=== PATIENT | female | born 1965 | race Caucasian/White ===

== ENCOUNTER 2017-01-28 18:21 | Emergency (ER) | payer MEDICARE, OTHER ==
--- NOTE | ~2017-01-28 | CR72 ---
[facility] A Service of [facility] & [facility] RADIOLOGY TEXT RESULTS PATIENT: WALDO MESA LOCATION: [facility] : 61 UNIT #: [id number] AGE: [address]: Eder Medellin MD SEX: F ORDER DR: [id number] [facility] [address] [place], [place] [address] [id number] MR#: [id number] Acc #: [id number] NAME: WALDO MESA : 1965 SEX: F STUDY DATE/TIME: 01/28/2017 18:28 UNIT: [facility] ROOM: STUDY DESCRIPTION: CR Chest Single View Portable Attending Physician: Eder Medellin M.D. Ordering Physician: Ed Efren Acuna M.D. Primary Care Physician: Sena Sarmiento M.D. MEDICAL IMAGING REPORT This report is preliminary unless electronic signature is present EXAM Portable chest, 01/28/2017 HISTORY Shortness of air for 2 days. FINDINGS Mild hyperinflation of both lungs. Cardiac size and pulmonary vascularity are within normal limits. No infiltrates or effusions are identified. Minimal linear atelectasis or scarring in the left base. IMPRESSION No acute findings. Dictated by... Sotero Hdz M.D. THIS IS AN ELECTRONICALLY VERIFIED REPORT Sotero Hdz M.D. at 01/30/2017 12:25 PM DFPreethi/tommy TD: 01/30/2017 00:58 JOB #: [id number] MEDICAL IMAGING REPORT COPY
--- NOTE | ~2017-01-28 | EKG ---
PATIENT: WALDO MESA UNIT #: [id number] Ventricular Rate: 89 BPM Atrial Rate: 89 BPM P-R Interval: 136 ms QRS Duration: 72 ms Q-T Interval: 352 ms QTC Calculation(Bezet): 428 ms P [place]: 78 degrees Calculated R [place]: 73 degrees Calculated T [place]: 62 degrees Diagnosis Line: Normal sinus rhythm Diagnosis Line: Normal ECG Diagnosis Line: When compared with ECG of 07-OCT-2016 15:20, Diagnosis Line: No significant change was found Diagnosis Line: Confirmed by LINDA VARGAS MD ([id number]) on 01/30/2017 Diagnosis Line: 7:30:14 AM INTERPRETING MD: SAM BARRETT
[~2017-01-28 18:21] MED LIST: ACETAMINOPHEN PO; ADVAIR 250-501 EAC1 IH; ADVAIR 250-501 EACH IH; ADVAIR 2501 DISK W/D PO; ADVAIR 500-501 EACH IH; ADVAIR 5001 DISK W/D PO; ADVAIR INH; ALBUTEROL MININEB NEB; ALBUTEROL17 GM INH; ALBUTEROL2.5 MG/0.5 IH; ALBUTEROL2.5 MG/0.5 NEB; ALBUTEROL20 ml INH; ALPRAZOLAM PO; ALPRAZOLAM0.25 MG PO; AMOXICILLIN500 M1 PO; ASPIRIN81 M1 PO; ATIVAN PO; ATROVENT HFA12.9 GM INH; AUGMENTIN PO; AURALGAN EAR DR14 ML OT; AZITHROMYCIN250 MG PO; CEFTIN PO; CELEXA PO; CIPRO PO; CIPRO250 MG PO; CLARITIN10 MG PO; COMBIVENT INH14.7 G1 IH; COMBIVENT INH14.7 GM INH; COMBIVENT MININEB INH; COMBIVENT MININEB NEB; COMBIVENT U/D3 M2 INH; COMBIVENT14.7 GM; COMBIVENT14.7 GM IH; COMBIVENT14.7 GM INH; DIFLUCAN200 MG PO; DILTIAZEM HCL30 MG PO; DOXYCYCLINE PO; DUONEB 2.5-0.5 M3 ML INH; DUONEB 2.5-0.5 M3 ML NEB; FAMOTIDINE PO; FERRO-TIME325 MG PO; FLEXERIL PO; FOLIC ACID PO; GLUCOPHAGE500 M1 PO; GLUCOPHAGE500 MG PO; HYDROCHLOROTHIA25 MG PO; HYDROCODON-ACE1 EAC1 PO; HYDROCODON-ACET15 M1 PO; HYDROCODONE-APA1 T59 PO; IBUPROFEN PO; KCL; KCL PO; LAMISIL PO; LASIX PO; LASIX20 MG PO; LEVAQUIN PO; LISINOPRIL10 MG PO; LISINOPRIL2.5 MG PO; LORTAB 7.5-5001 TAB PO; LORTAB 7.51 TAB PO; MACROBID100 MG PO; METFORMIN HCL500 M1 PO; METFORMIN PO; MUCINEX DM1 TAB.SR . PO; NAPROXEN PO; NEBULIZER INH; NORCO 5/325 TAB1 TAB PO; OMEPRAZOLE20 M1 PO; OMEPRAZOLE20 M2 PO; OMEPRAZOLE40 MG PO; OXYGEN; PREDNISOLO15 MG/5 ML PO; PREDNISOLONE5 MG PO; PREDNISONE PO; PREDNISONE10 MG PO; PREDNISONE10 MG/DOSE PO; PREDNISONE5 MG; PRILOSEC PO; PRILOSEC20 M1 PO; PRILOSEC20 MG PO; PROAIR HFA8.5 GM; PROAIR HFA8.5 GM IH; PROAIR HFA8.5 GM INH; PROVENTIL INH0.5 ML HHN; REGLAN10 MG PO; SINGULAIR PO; SYMBICORT INH; THEO-24200 MG PO; THEO-DUR200 MG DOB; THEO-DUR200 MG PO; THEO-DUR300 MG PO; THEOPHYLLIN PO; TYLENOL325 M1 PO; ULTRAM PO; VIBRAMYCIN100 M1 PO; VICODIN 5/500 T1 TAB PO; VOLTAREN75 MG PO; XANAX1 MG PO; ZESTRIL2.5 M1 PO; ZITHROMAX PO; ZITHROMAX500 MG PO; ZYRTEC PO; ZYRTEC10 M2 PO; [UNRECOGNIZED DRUG - SUPPLY] MC
[2017-01-28 18:23] LABS: BASOPHIL% 0.2 % (0-2.5); HEMATOCRIT 30.8 % (35.0-45.0); HEMOGLOBIN 9.6 gm/dL (12.0-16.0); LYMPHOCYTE# 0.7 X10e3 (1.0-3.5); LYMPHOCYTE% 5.3 % (17.0-45.0); MEAN CELL VOLUME 76.2 FL (83-96); MEAN CORPUSCULAR HEMOGLOBIN 23.7 PG (28-34); MEAN PLATELET VOLUME 7.8 FL (6.5-11.5); MONOCYTE# 0.6 X10e3 (0-1.0); MONOCYTE% 4.8 % (3.0-12.0); NEUTROPHIL% 89.7 % (40-75); PLATELET COUNT 267 X10e3 (140-420); RED BLOOD COUNT 4.05 X10e (3.90-5.30); RED CELL DISTRIBUTION WIDTH 16.1 % (11.0-15.5); WHITE BLOOD COUNT 13.4 X10e3 (4.0-10.5)
[2017-01-28 18:24] LABS: DIFF IND NO
[2017-01-28 18:27] LABS: POC - CKMB 1.5 ng/mL (0.0-7.9); POC - TROPONIN <0.05 ng/mL (<=0.05)
[2017-01-28 19:00] LABS: ALBUMIN SERUM 3.7 g/dL (3.5-5.0); ALKALINE PHOSPHATASE 60 U/L (32-92); ALT (SGPT) 16 U/L (10-40); AST (SGOT) 17 U/L (10-42); BILIRUBIN, DIRECT 0.1 mg/dL (0.0-0.2); BILIRUBIN,INDIRECT 0.4 mg/dL (0.0-0.9); BILIRUBIN,TOTAL 0.5 mg/dL (0.2-2.0); BLOOD UREA NITROGEN 18 mg/dL (9-23); CALCIUM SERUM 8.9 mg/dL (8.4-10.2); CARBON DIOXIDE 35 mmol/L (22-31); CHLORIDE 96 mmol/L (100-111); CREATININE SERUM 0.9 mg/dL (0.6-1.4); GLOM FILT RATE Estimated ABOVE60 mL/min (>60); GLUCOSE FASTING 190 mg/dL (70-110); POTASSIUM 3.8 mmol/L (3.5-5.1); SODIUM 141 mmol/L (135-145)
[2017-01-28 20:09] LABS: POC - CKMB 1.1 ng/mL (0.0-7.9); POC - TROPONIN <0.05 ng/mL (<=0.05)
== END 2017-01-28 20:15 | disposition home or self-care (01) ==
LOC: CED 18:21
PROVIDERS: Emergency Medicine
DX: J44.1 Chronic obstructive pulmonary disease with (acute) exacerbation (principal); I10 Essential (primary) hypertension; K21.9 Gastro-esophageal reflux disease without esophagitis; Z90.49 Acquired absence of other specified parts of digestive tract; Z88.2 Allergy status to sulfonamides
CPT/HCPCS: 36415; 71010; 80048; 80076; 82553; 83880; 84484; 85025; 93005; 94640; 96374; 99284; J2930

== ENCOUNTER 2017-04-11 15:17 | Inpatient (IN) | payer MEDICARE, OTHER ==
--- NOTE | ~2017-04-11 | HP ---
Unit #: [id number] #: [id number] Patient: WALDO MESA [id number] [address] [place], [place] [address] [id number] I MR#: [id number] NAME: WALDO MESA. ROOM: [facility] Age: 51 Sex: F Admission Date: 04/11/2017 : 1965 Attending Physician: Nilda Sheffield M.D. Primary Care Physician: Sena Sarmiento M.D. HISTORY AND PHYSICAL HISTORY OF PRESENT ILLNESS This is a young lady with a history of chronic obstructive pulmonary disease, chronic anemia, acute blood loss anemia, obesity, diabetes, who presents for worsening shortness of air for approximately two or three days. She denies any sort of sick contacts. She thinks maybe she has been going in and out of cold air conditions to warm rooms and, therefore, that is why she is significantly more sick. The patient denies any sort of fevers or chills, is able to expectorate and cough fairly easily but not (1) scant, clear, nothing is coming up. The patient stated that she came into Dr. Das's office for a shot and oral antibiotics; however, this did not improve. Therefore, this is failure of outpatient treatment. PAST MEDICAL HISTORY COPD, obesity, diabetes, obstructive sleep apnea, history of cervical cancer as well as home oxygen. PAST SURGICAL HISTORY Cervical cancer removal, section and cholecystectomy. SOCIAL HISTORY The patient used to smoke quite heavily, has quit about five years ago. No history of alcohol. FAMILY HISTORY Negative for cancers. Negative for heart disease; however, her father had a history of bronchial problems. REVIEW OF SYSTEMS Significant for occasional headache, worsening shortness of breath, paroxysmal nocturnal dyspnea, chest tightness as well as wheezing. PHYSICAL EXAMINATION VITAL SIGNS: T-current 99.3. Pulse 116. Respiratory rate 21. Blood pressure 119/71. Ins and outs 1,370 in x2 (2) out. HEENT: Extraocular movements are intact. CHEST: Clear to auscultation bilaterally. CARDIOVASCULAR: Regular rate. No gallop. ABDOMEN: Soft, nontender, nondistended. EXTREMITIES: No evidence of edema. The pulses bilaterally are intact. DIAGNOSTIC STUDIES LABORATORY: Glucose 298 and 211. Basic metabolic significant of 4, BUN and creatinine 21 and 2.7, bicarb 22; otherwise, Chem-7 is within normal Unit #: [id number] #: [id number] Patient: WALDO MESA. IMAGING: Chest x-ray, single view, shows mild cardiac enlargement. No evidence of active disease. ASSESSMENT AND PLAN COPD exacerbation, acute on chronic respiratory failure, failure of outpatient treatment. We are going to treat the patient with steroids, antibiotics and try to get a sputum culture to look for any resistive organisms. Tomorrow, if the patient is less tight, we are going to try and see if we can decrease the steroids. Dictated by Jorgito Norman TD: 04/13/2017 06:05 JOB #: [id number] HISTORY AND PHYSICAL Page 1 of 1 X Gera Sheffield MD X HISTORY AND PHYSICAL
--- NOTE | ~2017-04-11 | CR72 ---
[facility] A Service of [facility] & [facility] RADIOLOGY TEXT RESULTS PATIENT: WALDO MESA LOCATION: [place] [id number] : [birth year] UNIT #: [id number] AGE: [address]: Gera Sheffield MD SEX: F ORDER DR: [id number] [facility] [address] [place], [place] [address] [id number] I MR#: [id number] Acc #: [id number] NAME: WALDO MESA : 1965 SEX: F STUDY DATE/TIME: 04/11/2017 18:01 UNIT: [facility] ROOM: [facility] STUDY DESCRIPTION: CR Chest Single View Portable Attending Physician: Nilda Sheffield M.D. Ordering Physician: Jose Sanabria M.D. Primary Care Physician: Sena Sarmiento M.D. MEDICAL IMAGING REPORT This report is preliminary unless electronic signature is present EXAM Portable chest, 04/11/2017 HISTORY Shortness of breath and productive cough with chest congestion beginning today. Benign essential hypertension. FINDINGS The heart is enlarged but stable compared with 01/28/2017. The lungs are clear. There are no pleural effusions. IMPRESSION Mild cardiac enlargement. No active pulmonary disease. Dictated by... Woody Calvo M.D. THIS IS AN ELECTRONICALLY VERIFIED REPORT Woody Calvo M.D. at 04/13/2017 8:22 AM KRT/psc TD: 04/12/2017 02:04 JOB #: [id number] MEDICAL IMAGING REPORT Page 1 of 1 COPY
--- NOTE | ~2017-04-11 | DS ---
Unit #: [id number] #: [id number] Patient: WALDO CARROLL [id number] [address] [place], [place] [address] [id number] I MR#: [id number] NAME: WALDO CARROLL ROOM: [facility] Age: 51 Sex: F Admission Date: 04/11/2017 : 1965 Discharge Date: 04/16/2017 Attending Physician: Nilda Sheffield M.D. Primary Care Physician: Sena Sarmiento M.D. DISCHARGE SUMMARY FINAL DIAGNOSES 1. Acute exacerbation of chronic obstructive pulmonary disease. 2. Acute bronchitis. 3. Anemia. CONSULTANTS None. Ms. Carroll is a 51-year-old female with a history of end stage COPD who presents with increasing shortness of air for three days. On admission, she had no evidence of infiltrate on her chest x-ray. She was started on IV steroids and Levaquin and Solu-Medrol was tapered down over time. She has anemia and has been worked up with colonoscopy by Dr. Misha Stephenson. She has improved considerably and is ready for discharge. It is notable that since she has already had a colonoscopy, I did not further address the anemia. She will be sent home on the following medicines: 1. Advair 250/50, one puff b.i.d. 2. Combivent Respimat p.r.n. 3. Duo-Nebs p.r.n. 4. Prednisone 40 mg p.o. daily, decreasing by 10 mg every three days. 5. Xanax 0.25 mg p.o. b.i.d. 6. Cefuroxime 500 mg p.o. b.i.d. 7. Lisinopril 10 mg p.o. daily. 8. Omeprazole 20 mg p.o. daily. 9. Hydrocodone, which is Lorcet Plus, 7.5/325 q.8 p.r.n. but I did not write that prescription as that is a home medicine. 10. Theophylline 300 mg p.o. daily. DIET Regular. ACTIVITY As tolerated. FOLLOWUP She should follow up with me in about two weeks. Floral is a bit guarded as she does have severe COPD and we have already referred her to pulmonary transplant and she was not accepted yet. Unit #: [id number] #: [id number] Patient: WALDO CARROLL Preethi Dictated by... Jorgito Chavez/lemuel TD: 04/18/2017 08:47 JOB #: [id number] DISCHARGE SUMMARY Page 1 of 1 X Magan Das MD X DISCHARGE SUMMARY
--- NOTE | ~2017-04-11 | EKG ---
PATIENT: WALDO MESA UNIT #: [id number] Ventricular Rate: 96 BPM Atrial Rate: 96 BPM P-R Interval: 138 ms QRS Duration: 72 ms Q-T Interval: 346 ms QTC Calculation(Bezet): 437 ms P [place]: 78 degrees Calculated R [place]: 68 degrees Calculated T [place]: 52 degrees Diagnosis Line: Normal sinus rhythm Diagnosis Line: Normal ECG Diagnosis Line: When compared with ECG of 28-JAN-2017 18:22, Diagnosis Line: No significant change was found Diagnosis Line: Confirmed by RIDGE EPPERSON MD ([id number]) on Diagnosis Line: 04/15/2017 9:39:19 AM INTERPRETING STEFF SYKES
[2017-04-11 17:18] LABS: ALBUMIN SERUM 3.6 g/dL (3.5-5.0); BILIRUBIN, DIRECT 0.1 mg/dL (0.0-0.2); BILIRUBIN,INDIRECT 0.2 mg/dL (0.0-0.9); BILIRUBIN,TOTAL 0.3 mg/dL (0.2-2.0); BUN/CREATININE RATIO 25.71; CREATININE SERUM 0.7 mg/dL (0.6-1.4); GLOM FILT RATE Estimated 98.9 mL/min (>60); POTASSIUM 3.6 mmol/L (3.5-5.1); PROTEIN TOTAL SERUM 6.5 g/dL (6.0-8.3)
[2017-04-11 17:21] LABS: BASOPHIL% 0.2 % (0-2.5); HEMATOCRIT 32.3 % (35.0-45.0); LYMPHOCYTE# 0.8 X10e3 (1.0-3.5); LYMPHOCYTE% 5.5 % (17.0-45.0); MEAN CELL VOLUME 77.4 FL (83-96); MEAN CORPUSCULAR HEMOGLOBIN 23.9 PG (28-34); MEAN CORPUSCULAR HGB CONC 30.9 g/dL (30-36); MEAN PLATELET VOLUME 7.9 FL (6.5-11.5); MONOCYTE# 0.9 X10e3 (0-1.0); MONOCYTE% 5.8 % (3.0-12.0); NEUTROPHIL# 13.5 X10e3 (1.5-7.1); NEUTROPHIL% 88.5 % (40-75); PLATELET COUNT 235 X10e3 (140-420); RED BLOOD COUNT 4.17 X10e (3.90-5.30); RED CELL DISTRIBUTION WIDTH 17.9 % (11.0-15.5); WHITE BLOOD COUNT 15.2 X10e3 (4.0-10.5)
[2017-04-11 17:23] LABS: DIFF IND YES
[2017-04-11 18:16] LABS: ANISOCYTOSIS MOD; PLATELET ESTIMATE NORMAL (NORMAL); POIKILOCYTOSIS SL
[2017-04-11 18:17] LABS: MICROCYTOSIS SL
[2017-04-11 18:54] LABS: POC - CKMB <1.0 ng/mL (0.0-7.9); POC - TROPONIN <0.05 ng/mL (<=0.05)
[2017-04-11 20:48] LABS: POC - CKMB <1.0 ng/mL (0.0-7.9); POC - TROPONIN <0.05 ng/mL (<=0.05)
[2017-04-12] MEDS ORDERED: ADVAIR 250-501 EACH INH (00:56)
[2017-04-12] MEDS ORDERED: COMBIVENT RESPIM4 GM INH (00:57)
[2017-04-12] MEDS ORDERED: THEO-DUR300 MG PO (00:58)
[2017-04-12] MEDS ORDERED: LORCET PLUS 7.1 EACH PO (01:09)
[2017-04-12 05:28] LABS: BASOPHIL% 0.1 % (0-2.5); HEMOGLOBIN 9.4 gm/dL (12.0-16.0); LYMPHOCYTE# 0.3 X10e3 (1.0-3.5); LYMPHOCYTE% 3.1 % (17.0-45.0); MEAN CELL VOLUME 77.4 FL (83-96); MEAN CORPUSCULAR HEMOGLOBIN 24.2 PG (28-34); MEAN CORPUSCULAR HGB CONC 31.3 g/dL (30-36); MONOCYTE# 0.1 X10e3 (0-1.0); MONOCYTE% 1.1 % (3.0-12.0); NEUTROPHIL# 10.1 X10e3 (1.5-7.1); NEUTROPHIL% 95.7 % (40-75); PLATELET COUNT 197 X10e3 (140-420); RED BLOOD COUNT 3.87 X10e (3.90-5.30); RED CELL DISTRIBUTION WIDTH 18.1 % (11.0-15.5); WHITE BLOOD COUNT 10.5 X10e3 (4.0-10.5)
[2017-04-12 05:45] LABS: DIFF IND NO
[2017-04-12 06:56] LABS: CALCIUM SERUM 8.5 mg/dL (8.4-10.2); CREATININE SERUM 0.7 mg/dL (0.6-1.4); GLOM FILT RATE Estimated 98.9 mL/min (>60)
[2017-04-13 05:44] LABS: BASOPHIL% 0.3 % (0-2.5); HEMATOCRIT 29.3 % (35.0-45.0); HEMOGLOBIN 9.2 gm/dL (12.0-16.0); LYMPHOCYTE# 0.3 X10e3 (1.0-3.5); LYMPHOCYTE% 3.4 % (17.0-45.0); MEAN CELL VOLUME 76.9 FL (83-96); MEAN CORPUSCULAR HEMOGLOBIN 24.1 PG (28-34); MEAN CORPUSCULAR HGB CONC 31.3 g/dL (30-36); MONOCYTE# 0.4 X10e3 (0-1.0); MONOCYTE% 3.6 % (3.0-12.0); NEUTROPHIL% 92.7 % (40-75); PLATELET COUNT 187 X10e3 (140-420); RED BLOOD COUNT 3.81 X10e (3.90-5.30); RED CELL DISTRIBUTION WIDTH 17.9 % (11.0-15.5); WHITE BLOOD COUNT 9.8 X10e3 (4.0-10.5)
[2017-04-13 05:46] LABS: DIFF IND NO
[2017-04-13 06:35] LABS: PROCALCITONIN <0.05 NG/ML
[2017-04-13 06:51] LABS: ALBUMIN SERUM 3.1 g/dL (3.5-5.0); ALKALINE PHOSPHATASE 44 U/L (32-92); ALT (SGPT) 20 U/L (10-40); AST (SGOT) 14 U/L (10-42); BILIRUBIN,TOTAL 0.2 mg/dL (0.2-2.0); BLOOD UREA NITROGEN 26 mg/dL (9-23); BUN/CREATININE RATIO 37.14; CALCIUM SERUM 8.7 mg/dL (8.4-10.2); CARBON DIOXIDE 37 mmol/L (22-31); CHLORIDE 97 mmol/L (100-111); CREATININE SERUM 0.7 mg/dL (0.6-1.4); GLOM FILT RATE Estimated 98.9 mL/min (>60); GLUCOSE FASTING 221 mg/dL (70-110); PROTEIN TOTAL SERUM 5.7 g/dL (6.0-8.3); SODIUM 140 mmol/L (135-145)
[2017-04-14 06:24] LABS: HEMATOCRIT 30.3 % (35.0-45.0); HEMOGLOBIN 9.5 gm/dL (12.0-16.0); MEAN CELL VOLUME 76.4 FL (83-96); MEAN CORPUSCULAR HEMOGLOBIN 23.9 PG (28-34); MEAN CORPUSCULAR HGB CONC 31.3 g/dL (30-36); MEAN PLATELET VOLUME 8.2 FL (6.5-11.5); RED BLOOD COUNT 3.96 X10e (3.90-5.30); RED CELL DISTRIBUTION WIDTH 18.1 % (11.0-15.5); WHITE BLOOD COUNT 11.1 X10e3 (4.0-10.5)
[2017-04-14 07:48] LABS: CALCIUM SERUM 8.9 mg/dL (8.4-10.2); CREATININE SERUM 0.8 mg/dL (0.6-1.4); GLOM FILT RATE Estimated 84.2 mL/min (>60); MAGNESIUM 1.9 mg/dL (1.6-3.0); PHOSPHOROUS 3.3 mg/dL (2.5-4.6); POTASSIUM 4.3 mmol/L (3.5-5.1)
[2017-04-15 05:35] LABS: HEMATOCRIT 31.4 % (35.0-45.0); HEMOGLOBIN 9.8 gm/dL (12.0-16.0); MEAN CELL VOLUME 77.1 FL (83-96); MEAN CORPUSCULAR HGB CONC 31.2 g/dL (30-36); MEAN PLATELET VOLUME 8.3 FL (6.5-11.5); RED BLOOD COUNT 4.08 X10e (3.90-5.30); RED CELL DISTRIBUTION WIDTH 17.9 % (11.0-15.5); WHITE BLOOD COUNT 10.6 X10e3 (4.0-10.5)
[2017-04-15 05:53] LABS: BUN/CREATININE RATIO 32.22; CALCIUM SERUM 8.7 mg/dL (8.4-10.2); CREATININE SERUM 0.9 mg/dL (0.6-1.4); POTASSIUM 4.4 mmol/L (3.5-5.1)
[2017-04-16] MEDS ORDERED: PREDNISONE PO (16:01)
[2017-04-16] MEDS ORDERED: CEFUROXIME250 M1 PO (16:05)
== END 2017-04-16 16:58 | disposition home or self-care (01) | DRG 189 ==
LOC: CED 15:17 → C5B 19:30 → CEDOF 19:30 → CED 20:47 → C5B 23:46 → CEDOF 23:46 → C5B 04-16 16:58
PROVIDERS: Emergency Medicine; Internal Medicine Pulmonary Disease
DX: J96.22 Acute and chronic respiratory failure with hypercapnia (principal); J44.0 Chronic obstructive pulmonary disease with (acute) lower respiratory infection; Z68.41 Body mass index [BMI] 40.0-44.9, adult; D64.9 Anemia, unspecified; E11.9 Type 2 diabetes mellitus without complications; I10 Essential (primary) hypertension; J44.1 Chronic obstructive pulmonary disease with (acute) exacerbation; J20.9 Acute bronchitis, unspecified; E66.9 Obesity, unspecified; G47.33 Obstructive sleep apnea (adult) (pediatric); K21.9 Gastro-esophageal reflux disease without esophagitis; Z87.891 Personal history of nicotine dependence; Z90.49 Acquired absence of other specified parts of digestive tract; Z85.41 Personal history of malignant neoplasm of cervix uteri; Z83.6 Family history of other diseases of the respiratory system
CPT/HCPCS: 36415; 71010; 80048; 80053; 80076; 80198; 82308; 82553; 82947; 83735; 84100; 84484; 85025; 85027; 87070; 87205; 93005; 94640; 94664; 94760; 96374; 99285; J1650; J1815; J1956; J2920; J2930

== ENCOUNTER 2017-04-23 22:14 | Inpatient (IN) | payer MEDICARE, OTHER ==
--- NOTE | ~2017-04-23 | DS ---
Unit #: [id number] #: [id number] Patient: WALDO CARROLL [id number] [place] [id number] [facility]. [place], [place] [address] [id number] I MR#: [id number] NAME: WALDO CARROLL ROOM: 307 Age: 51 Sex: F Admission Date: 04/24/2017 : 1965 Discharge Date: 04/29/2017 Attending Physician: Magan Das M.D. Primary Care Physician: Sena Sarmiento M.D. DISCHARGE SUMMARY FINAL DIAGNOSES 1. Acute on chronic hypoxemic and hypercapnic respiratory failure. 2. Acute kidney injury which is improved. 3. Diabetes mellitus. 4. Acute bronchitis. Ms. Carroll was previously in the hospital and discharged. She came back with some tachycardia and hypoxemia. In the ER, they thought she had possibly pneumonia and maybe there was a little bit of increased markings in right lower lobe but the radiologist called the x-ray no acute disease, that is, no acute infiltrate. The ER doc had been concerned about elevated creatinine. She was given a little bit of fluid in the ER. She was otherwise treated as acute exacerbation of COPD. She had a chest x-ray that was PA and lateral the next day which was read as lungs well expanded, could be trace pleural effusion but no acute infiltrate and a repeat chest x-ray today also revealed no definite infiltrates. She had been treated with antibiotics briefly IV and this includes cefepime but that has been changed back to cefdinir and, in reality, she probably still has cefuroxime at home. She had complained of desaturation and it was a bit of a concern but that is better at this time. I had actually thought that she had a recent PE protocol but apparently that is not the case. In reality, that was done last year. She is on metformin at home and she will need to go back on the metformin and there is no other way to control her diabetes so I am going to hold off on repeating this CAT scan. This is especially in view of the fact that her oxygenation has improved and she is feeling better and oxygenating better. She will be discharged today on the following medicines: 1. Duo-Nebs q.i.d. p.r.n. or Combivent Respimat q.i.d. p.r.n. 2. Advair 250/50, one puff b.i.d. 3. Prednisone 20 mg p.o. daily, decreasing by 10 mg in three days. 4. Glucophage 1000 mg p.o. daily although this may have to be increased to b.i.d. 5. Xanax 0.25 mg p.o. b.i.d. p.r.n. which is a home medicine and I did not rewrite it. 6. Cefuroxime 500 mg p.o. b.i.d. 7. Lisinopril 10 mg p.o. daily. 8. Lorcet Plus or hydrocodone/acetaminophen 7.5/325 q.8 p.r.n. 9. Prilosec 20 mg p.o. daily. 10. Leno-Dur 300 mg p.o. daily if she can even get anymore. 11. She will be on 5 L on exertion and 4 L at rest and she already has home O2. Please note - the patient is to see Dr. Sarmiento in the next couple of weeks Unit #: [id number] #: [id number] Patient: WALDO CARROLL and should see us in the next couple of weeks too. Dictated by... Jorgito Chavez/lemuel TD: 05/02/2017 07:25 JOB #: [id number] DISCHARGE SUMMARY Page 1 of 1 X Magan Das MD X DISCHARGE SUMMARY
--- NOTE | ~2017-04-23 | HP ---
Unit #: [id number] #: [id number] Patient: WALDO CARROLL [id number] [address] [place], [place] [address] [id number] I MR#: [id number] NAME: WALDO CARROLL ROOM: 236 Age: 51 Sex: F Admission Date: 04/24/2017 : 1965 Attending Physician: Magan Das M.D. Primary Care Physician: Sena Sarmiento M.D. HISTORY AND PHYSICAL HISTORY OF PRESENT ILLNESS Miss Carroll is a 51-year-old female known by me with severe endstage COPD, who was discharged on 04/16/2017. She was sent home on her usual oxygen which I believe is 4 L. She noted some increased shortness of air at home and then she noted that when she walked her sats were going on to 70 on 4 L nasal cannula but she was using the conserving device. She has a little bit of a cough, really not coughing much of anything. She really did not notice any fever or chills. She did notice maybe a little dysuria and said the urine had a foul smell. She has not smoked in almost five years. PAST MEDICAL HISTORY Past medical history is significant for COPD. This is basically endstage and last PFT that I know of or at least have access to was significant for FEV1 of only 0.59, 21% of predicted and FVC was 0.78, 22% of predicted. Even though this is restrictive, I still believe that she has COPD. She has been referred for transplant but I believe she has to lose weight in order to really make the list. She has a history of obesity and diabetes mellitus, sleep apnea and cervical cancer. MEDICATIONS ON ADMISSION Had included: 1. Combivent Respimat two puffs q.i.d. 2. Leno-Dur 300 mg p.o. daily. 3. Lorcet Plus 7.5/325 q.8 h. p.r.n. 4. Prednisone tapering scale. 5. Cefuroxime 500 mg b.i.d. 6. Glucophage 1000 mg p.o. daily. 7. Xanax 0.25 mg b.i.d. p.r.n. 8. Lisinopril 10 mg p.o. daily. 9. Prilosec 20 mg p.o. daily. 10. Advair 250/50 one puff b.i.d. 11. And, as mentioned, I believe she is on 4 L per nasal cannula. ALLERGIES Sulfa which causes a rash. SOCIAL HISTORY She did smoke but she quit approximately five years ago. FAMILY HISTORY Significant for lung disease in her father. REVIEW OF SYSTEMS Unit #: [id number] #: [id number] Patient: WALDO CARROLL Appetite has been fair. No nausea, vomiting or diarrhea. She has a little bit of leg swelling bilaterally, one leg not bigger than the other and no unilateral leg pain. She does complain of dysuria. She says that the urine has a foul smell. However she really did not complain of any fever or chills. She complained of tachycardia at home up to 170 but I do not think that has been noted here. PHYSICAL EXAMINATION GENERAL APPEARANCE: On exam she presents as a middle-aged female in no acute distress. VITAL SIGNS: Temperature was 97.3, pulse 106, respirations 18, blood pressure 119/80, saturation is presently 93 to 100, probably more than 93%. NECK: Without adenopathy. LUNGS: Evaluation of her lungs reveals that her breathing is not labored. She has decreased breath sounds bilaterally and a little bit of expiratory wheezes bilaterally. HEART: Heart was mildly tachycardic. ABDOMEN: Soft, nontender, bowel sounds present. EXTREMITIES: With trace edema. NEUROLOGICALLY: She is awake and alert. DIAGNOSTIC STUDIES IMAGING: Chest x-ray to my exam was a portable but I thought she had increased interstitial markings on the right, could be consistent with a mild infiltrate. However, this actually does not have a report yet so I do not know whether the radiologist agreed with me. LABORATORY: Her blood gas on 4 L pH 7.37, pCO2 of 59, pO2 of 124. Serum chemistry significant for a BUN of 27, creatinine 1.5 now. Previously on April 15 BUN was 29 and creatinine was 0.9. Bicarb at this time was 35. White blood cell count 13.7, hemoglobin and hematocrit 9.4 and 30, platelets 155,000. For whatever reason they did a lactic acid in the ER that was slightly elevated at 2.3. Repeat was 1.0. Cultures have been sent, that is particularly blood cultures. IMPRESSION 1. Dwhkf-gt-racvzbk hypoxemic respiratory failure. 2. Chronic hypercapnic respiratory failure. 3. Chronic obstructive pulmonary disease, possibly with exacerbation. 4. Elevated lactic acid of unknown significance. That is, I am not certain that she really truly has a true sepsis and in fact I do not think she does clinically. The question is whether she has a new infection at all. 5. Desaturation with walking. This actually could be a function of her conserving device and that maybe she just cannot use it any more. We have actually already checked her on 4 L continuous nasal cannula and she only dropped to 93%. 6. Dysuria. 7. Possible acute kidney injury although it would not really be acute here, maybe acute previously. PLAN I will treat her with Solu-Medrol for an exacerbation of COPD. I will treat her with cefepime until I can rule out a true infection. We will check urine for C/S. She is being hydrated and we will keep an eye on her BUN and creatinine. I will check a procalcitonin which should be elevated if she truly is septic. Unit #: [id number] #: [id number] Patient: WALDO CARROLL Dictated by Jorgito Chavez/viry TD: 04/24/2017 18:55 JOB #: [id number] HISTORY AND PHYSICAL Page 1 of 1 X Magan Das MD X HISTORY AND PHYSICAL
--- NOTE | ~2017-04-23 | CR63 ---
[facility] A Service of [facility] & [facility] RADIOLOGY TEXT RESULTS PATIENT: WALDO MESA LOCATION: [facility] - : [birth year] UNIT #: [id number] AGE: [address]: Magan Das MD SEX: F ORDER DR: [id number] [facility] [address] [place], [place] [address] [id number] I MR#: [id number] Acc #: [id number] NAME: WALDO MESA : 1965 SEX: F STUDY DATE/TIME: 04/29/2017 7:33 UNIT: [address] ROOM: [facility] STUDY DESCRIPTION: CR Chest 2 View Attending Physician: Magan Das M.D. Ordering Physician: Magan Das M.D. Primary Care Physician: Sena Sarmiento M.D. MEDICAL IMAGING REPORT This report is preliminary unless electronic signature is present EXAM PA and lateral chest INDICATIONS Shortness of breath and decreased oxygen saturations. COMPARISON STUDIES 04/25/2017. FINDINGS No new infiltrates. Stable low inspiratory volume. Heart size stable. IMPRESSION No significant change in appearance of the chest. Dictated by... Darin Beltran M.D. THIS IS AN ELECTRONICALLY VERIFIED REPORT Darin Beltran M.D. at 04/30/2017 10:30 AM ANKUR/rene TD: 04/29/2017 11:47 JOB #: [id number] MEDICAL IMAGING REPORT Page 1 of 1 COPY
--- NOTE | ~2017-04-23 | EKG ---
PATIENT: WALDO MESA UNIT #: [id number] Ventricular Rate: 130 BPM Atrial Rate: 130 BPM P-R Interval: 116 ms QRS Duration: 68 ms Q-T Interval: 298 ms QTC Calculation(Bezet): 438 ms P [place]: 73 degrees Calculated R [place]: 70 degrees Calculated T [place]: 66 degrees Diagnosis Line: Sinus tachycardia Diagnosis Line: Otherwise normal ECG Diagnosis Line: When compared with ECG of 11-APR-2017 17:18, Diagnosis Line: No significant change was found Diagnosis Line: Confirmed by RIDGE EPPERSON MD ([id number]) on Diagnosis Line: 04/24/2017 5:49:04 PM INTERPRETING MD: MONY
--- NOTE | ~2017-04-23 | CR72 ---
[facility] A Service of [facility] & [facility] RADIOLOGY TEXT RESULTS PATIENT: WALDO MESA LOCATION: A : 61 UNIT #: [id number] AGE: [address]: Magan Das MD SEX: F ORDER DR: [id number] [facility] [address] [place], [place] [address] [id number] I MR#: [id number] Acc #: [id number] NAME: WALDO MESA : 1965 SEX: F STUDY DATE/TIME: 04/23/2017 23:35 UNIT: [facility] ROOM: [facility] STUDY DESCRIPTION: CR Chest Single View Portable Attending Physician: Magan Das M.D. Ordering Physician: Ronal Benton M.D. Primary Care Physician: Sena Sarmiento M.D. MEDICAL IMAGING REPORT This report is preliminary unless electronic signature is present EXAM Portable chest INDICATION Dyspnea, back pain, shortness of air. Symptoms started today. COMPARISON 04/11/2017. FINDINGS A portable view of the chest was obtained. The heart size and vascularity are normal. The lungs are clear. The bones are unremarkable. IMPRESSION No active disease. Dictated by... Claudio Estrella M.D. THIS IS AN ELECTRONICALLY VERIFIED REPORT Claudio Estrella M.D. at 04/24/2017 12:39 PM CRICKET/alissa TD: 04/24/2017 09:32 JOB #: [id number] MEDICAL IMAGING REPORT Page 1 of 1 COPY
--- NOTE | ~2017-04-23 | CR63 ---
[facility] A Service of [facility] RADIOLOGY TEXT RESULTS PATIENT: WALDO MESA LOCATION: [facility] - : [birth year] UNIT #: [id number] AGE: [address]: Magan Das MD SEX: F ORDER DR: [id number] [facility] [address] [place], [place] [address] [id number] I MR#: [id number] Acc #: [id number] NAME: WALDO MESA. : 1965 SEX: F STUDY DATE/TIME: 04/25/2017 UNIT: A ROOM: 236 STUDY DESCRIPTION: CR Chest 2 View Attending Physician: Magan Das M.D. Ordering Physician: Magan Das M.D. Primary Care Physician: Sena Sarmiento M.D. MEDICAL IMAGING REPORT This report is preliminary unless electronic signature is present EXAM Chest 2 views 04/25/2017 0803 hours HISTORY 51-year-old with 2-day history of shortness of air on oxygen therapy. Oxygen desaturation with activity. Cough and weakness. COMPARISON 04/23/2017 FINDINGS Upright PA and 2 lateral views demonstrate heart size at the upper limits of normal. Aortic contours are normal. The pulmonary ekaterina are normal. There is normal pulmonary vascularity. The lungs are well expanded. There is haziness at both lung bases, likely due to overlying soft tissues. Lateral view suggests minimal blunting of both costophrenic sulci, which could represent pleural thickening or trace bilateral effusions. No drainable effusions are seen. IMPRESSION 1. Heart size at the upper limits of normal. Lungs are clear. 2. Lateral views suggest mild blunting of both posterior sulci, which could be related to very small effusions or pleural thickening. There is no definite pneumonia or edema. Dictated by... Mary Johnson M.D. THIS IS AN ELECTRONICALLY VERIFIED REPORT Mary Johnson M.D. at 04/25/2017 2:33 PM OJ/senia [facility] A Service of [facility] & [facility] RADIOLOGY TEXT RESULTS PATIENT: WALDO MESA LOCATION: [facility] 236- : [birth year] UNIT #: [id number] AGE: [address]: Magan Das MD SEX: F ORDER DR: TD: 04/25/2017 12:04 JOB #: [id number] MEDICAL IMAGING REPORT Page 1 of 1 COPY
[~2017-04-23 22:14] MED LIST changes: +ADVAIR 250-501 EACH INH; +CEFUROXIME250 M1 PO; +COMBIVENT RESPIM4 GM INH; +LORCET PLUS 7.1 EACH PO
[2017-04-23 23:18] LABS: ARTERIAL BLD GAS O2 SATURATION 96.4 % (90.0-100.0); ARTERIAL BLOOD GAS ALLEN TEST NORMAL; ARTERIAL BLOOD GAS ART SITE LEFT RADIAL; ARTERIAL BLOOD GAS CARBOXY HB 1.7 %sat (0.0-9.0); ARTERIAL BLOOD GAS DELIVERY NASAL CANNULA; ARTERIAL BLOOD GAS HCO3 34.9 mmol/L; ARTERIAL BLOOD GAS PCO2 59.8 mmHg (35.0-45.0); ARTERIAL BLOOD GAS pH 7.375 (7.350-7.450); ARTERIAL DRAW? YES
[2017-04-24 00:44] LABS: INR 1.1; PARTIAL THROMBOPLASTIN TIME 28.2 SECONDS (23.5-31.3); PROTHROMBIN TIME (PATIENT) 11.2 SECONDS (9.6-11.5)
[2017-04-24 01:02] LABS: BASOPHIL% 0.2 % (0-2.5); EOSINOPHIL# 0.1 X10e3 (0-0.7); EOSINOPHIL% 0.8 % (0.0-7.0); HEMATOCRIT 30.3 % (35.0-45.0); HEMOGLOBIN 9.4 gm/dL (12.0-16.0); LYMPHOCYTE# 1.7 X10e3 (1.0-3.5); LYMPHOCYTE% 12.1 % (17.0-45.0); MEAN CELL VOLUME 78.9 FL (83-96); MEAN CORPUSCULAR HEMOGLOBIN 24.4 PG (28-34); MEAN PLATELET VOLUME 8.4 FL (6.5-11.5); MONOCYTE# 1.7 X10e3 (0-1.0); MONOCYTE% 12.7 % (3.0-12.0); NEUTROPHIL# 10.2 X10e3 (1.5-7.1); NEUTROPHIL% 74.2 % (40-75); PLATELET COUNT 155 X10e3 (140-420); RED BLOOD COUNT 3.84 X10e (3.90-5.30); RED CELL DISTRIBUTION WIDTH 19.2 % (11.0-15.5); WHITE BLOOD COUNT 13.7 X10e3 (4.0-10.5)
[2017-04-24 01:03] LABS: DIFF IND NO
[2017-04-24 01:13] LABS: CALCIUM SERUM 8.1 mg/dL (8.4-10.2); POTASSIUM 4.6 mmol/L (3.5-5.1)
[2017-04-24 01:17] LABS: ALBUMIN SERUM 3.4 g/dL (3.5-5.0); BILIRUBIN, DIRECT 0.1 mg/dL (0.0-0.2); BILIRUBIN,INDIRECT 0.5 mg/dL (0.0-0.9); BILIRUBIN,TOTAL 0.6 mg/dL (0.2-2.0); CREATININE SERUM 1.5 mg/dL (0.6-1.4); GLOM FILT RATE Estimated 39.4 mL/min (>60); PROTEIN TOTAL SERUM 6.6 g/dL (6.0-8.3)
[2017-04-24 20:42] LABS: URINE APPEARANCE CLEAR; URINE BILIRUBIN NEG (NEG); URINE BLOOD NEG (NEG); URINE COLOR YELLOW; URINE GLUCOSE >1000 MG/DL (NEG); URINE KETONE NEG (NEG); URINE LEUKOCYTE ESTERASE NEG (NEG); URINE NITRATE NEG (NEG); URINE PH 5.5 (5-8); URINE PROTEIN NEG (NEG); URINE SPECIFIC GRAVITY 1.025 (1.003-1.035); URINE UROBILINOGEN 0.2 MG/DL (NEG)
[2017-04-25 05:14] LABS: HEMATOCRIT 27.3 % (35.0-45.0); HEMOGLOBIN 8.4 gm/dL (12.0-16.0); MEAN CELL VOLUME 79.6 FL (83-96); MEAN CORPUSCULAR HEMOGLOBIN 24.6 PG (28-34); MEAN CORPUSCULAR HGB CONC 30.9 g/dL (30-36); MEAN PLATELET VOLUME 8.7 FL (6.5-11.5); RED BLOOD COUNT 3.43 X10e (3.90-5.30); RED CELL DISTRIBUTION WIDTH 19.1 % (11.0-15.5); WHITE BLOOD COUNT 11.9 X10e3 (4.0-10.5)
[2017-04-25 06:25] LABS: BUN/CREATININE RATIO 28.75; CALCIUM SERUM 8.3 mg/dL (8.4-10.2); CREATININE SERUM 0.8 mg/dL (0.6-1.4); GLOM FILT RATE Estimated 84.2 mL/min (>60); POTASSIUM 4.8 mmol/L (3.5-5.1)
[2017-04-25 07:06] LABS: PROCALCITONIN 0.09 NG/ML
[2017-04-26 06:37] LABS: HEMATOCRIT 25.6 % (35.0-45.0); MEAN CELL VOLUME 78.7 FL (83-96); MEAN CORPUSCULAR HEMOGLOBIN 24.6 PG (28-34); MEAN CORPUSCULAR HGB CONC 31.2 g/dL (30-36); MEAN PLATELET VOLUME 8.3 FL (6.5-11.5); RED BLOOD COUNT 3.26 X10e (3.90-5.30); RED CELL DISTRIBUTION WIDTH 18.7 % (11.0-15.5)
[2017-04-26 07:28] LABS: BUN/CREATININE RATIO 31.11; CALCIUM SERUM 8.9 mg/dL (8.4-10.2); CREATININE SERUM 0.9 mg/dL (0.6-1.4); POTASSIUM 4.9 mmol/L (3.5-5.1)
[2017-04-28 07:27] LABS: CALCIUM SERUM 8.7 mg/dL (8.4-10.2); CREATININE SERUM 0.9 mg/dL (0.6-1.4); POTASSIUM 4.9 mmol/L (3.5-5.1)
[2017-04-29] MEDS ORDERED: COMBIVENT U/D3 M4 INH (17:52)
== END 2017-04-29 18:40 | disposition home or self-care (01) | DRG 189 ==
LOC: CED 22:14 → C2A 04-24 01:38 → CEDOF 04-24 01:38 → CED 04-24 01:58 → C2A 04-24 09:11 → CEDOF 04-24 09:11 → C3A PCU 04-27 17:31
PROVIDERS: Emergency Medicine; Internal Medicine Pulmonary Disease
DX: J96.21 Acute and chronic respiratory failure with hypoxia (principal); N17.9 Acute kidney failure, unspecified; J44.0 Chronic obstructive pulmonary disease with (acute) lower respiratory infection; E11.9 Type 2 diabetes mellitus without complications; D53.9 Nutritional anemia, unspecified; E66.9 Obesity, unspecified; J44.1 Chronic obstructive pulmonary disease with (acute) exacerbation; J96.22 Acute and chronic respiratory failure with hypercapnia; J20.9 Acute bronchitis, unspecified; Z85.41 Personal history of malignant neoplasm of cervix uteri; G47.33 Obstructive sleep apnea (adult) (pediatric); Z79.01 Long term (current) use of anticoagulants; Z79.84 Long term (current) use of oral hypoglycemic drugs; Z87.891 Personal history of nicotine dependence; R30.0 Dysuria
CPT/HCPCS: 36415; 36600; 71010; 71020; 80048; 80076; 81003; 82308; 82803; 82947; 83605; 83880; 85025; 85027; 85610; 85730; 87040; 87070; 87086; 87205; 93005; 94640; 94644; 94760; 96361; 96374; 97161; 99291; G8978-GP; G8979-GP; G8980-GP; J0692; J1040; J1650; J1815; J2920; J2930

== ENCOUNTER → 2017-06-29 | Outpatient (CLI) | payer MEDICARE, OTHER ==
[~2017-06-29] MED LIST changes: +COMBIVENT U/D3 M4 INH
--- NOTE | ~2017-06-29 | US77 ---
[facility] A Service of [facility] & [facility] RADIOLOGY TEXT RESULTS PATIENT: WALDO MESA LOCATION: [facility] : 61 UNIT #: [id number] AGE: [address]: Sena Sarmiento MD SEX: F ORDER DR: [id number] [facility] [address] [place], [place] [address] [id number] O MR#: [id number] Acc #: [id number] NAME: WALDO MESA : 1965 SEX: F STUDY DATE/TIME: 06/29/2017 12:29 UNIT: [facility] ROOM: STUDY DESCRIPTION: US Kidney Bilateral Complete Attending Physician: Sena Sarmiento M.D. Referring Physician: Sena Sarmiento M.D. Ordering Physician: Sena Sarmiento M.D. Primary Care Physician: Sena Sarmiento M.D. MEDICAL IMAGING REPORT This report is preliminary unless electronic signature is present EXAM Bilateral renal ultrasound, 06/29/2017 HISTORY Acute renal insufficiency, abnormal renal function tests, elevated BUN of 27 today. Hypertension, hyperlipidemia and diabetes. FINDINGS The right kidney measures 10.3 cm, while the left kidney measures 13.3 cm in longitudinal dimensions. There is no evidence of hydronephrosis or nephrolithiasis. There is a 7.6-cm cyst on the left kidney. No solid mass lesions are identified. There is normal renal cortical echogenicity. The bladder was empty for the exam and therefore poorly visualized. IMPRESSION 1. Left renal cyst. Otherwise, negative renal ultrasound. 2. The bladder was empty for the exam and therefore poorly visualized. Dictated by... Woody Calvo M.D. THIS IS AN ELECTRONICALLY VERIFIED REPORT Woody Calvo M.D. at 06/30/2017 7:27 AM WILIAM/renee TD: 06/30/2017 00:49 JOB #: [id number] MEDICAL IMAGING REPORT Page 1 of 1 COPY
== END | disposition home or self-care (01) ==
LOC: CGUS 11:57
DX: N28.9 Disorder of kidney and ureter, unspecified (principal); N28.1 Cyst of kidney, acquired
CPT/HCPCS: 76770

== ENCOUNTER → 2017-07-03 | Outpatient (CLI) | payer MEDICARE, OTHER ==
[2017-07-03 11:41] LABS: ARTERIAL BLD GAS O2 SATURATION 94.5 % (90.0-100.0); ARTERIAL BLOOD GAS CARBOXY HB 1.3 %sat (0.0-9.0); ARTERIAL BLOOD GAS HCO3 31.1 mmol/L; ARTERIAL BLOOD GAS MET HB 1.3 %sat (0.0-2.0); ARTERIAL BLOOD GAS pH 7.388 (7.350-7.450)
[2017-07-03 11:42] LABS: ARTERIAL BLOOD GAS ALLEN TEST NORMAL; ARTERIAL BLOOD GAS ART SITE RIGHT RADIAL; ARTERIAL BLOOD GAS DELIVERY NASAL CANNULA; ARTERIAL BLOOD GAS PCO2 51.6 mmHg (35.0-45.0); ARTERIAL DRAW? YES
== END | disposition home or self-care (01) ==
LOC: CLAB 11:10
PROVIDERS: Internal Medicine Pulmonary Disease
DX: J96.11 Chronic respiratory failure with hypoxia (principal); J44.9 Chronic obstructive pulmonary disease, unspecified; G47.33 Obstructive sleep apnea (adult) (pediatric)
CPT/HCPCS: 36600; 82803